=== PATIENT | male | born 1935 | race Two or more races ===

== ENCOUNTER 2021-03-05 22:22 | Emergency (ER) | payer OTHER ==
[~2021-03-05] VITALS: Ht 170.2 cm; Wt 57.6 kg
[2021-03-05] MEDS ORDERED: MIDAZOLAM HCL 2MG/2ML 2ml VIAL (1mg/ml) IV ONE (23:15)
[2021-03-05] MEDS ORDERED: fentaNYL CITRATE 100 MCG/2 ML VL IV ONE (23:15)
[2021-03-06 00:45] VITALS: BP 138/86
[2021-03-06] MEDS ORDERED: PROPOFOL 10 MG/ML 20 ML IV ONE (01:15)
[2021-03-06] MEDS ORDERED: SODIUM CHLORIDE 0.9% 1,000 ML IV ONE (01:15)
== END 2021-03-06 07:19 | disposition home or self-care (01) ==
LOC: EDBD 22:26 → ER 22:26
DX: T18.5XXA Foreign body in anus and rectum, initial encounter (principal); X58.XXXA Exposure to other specified factors, initial encounter; Y93.89 Activity, other specified; Y92.89 Other specified places as the place of occurrence of the external cause; Y99.8 Other external cause status
CPT/HCPCS: 74176; 96374; 96375; 99284; J2250; J2704; J3010; J7030